=== PATIENT | female | born 1960 | race Caucasian/White ===

== ENCOUNTER 2024-06-26 23:53 | Emergency (ER) | payer MEDICARE, OTHER ==
[~2024-06-26] VITALS: Ht 149.9 cm; Wt 88.0 kg
[2024-06-27 00:06] VITALS: BP 141/81; PULSE 69; RESP 18; TEMP 98.1; O2SAT 96
[2024-06-27] MEDS ORDERED: ACETAMINOPHEN WITH CODEINE 300/30MG TABLET PO ONE (02:30)
[2024-06-27] MEDS ORDERED: ACET-2708 MT (02:58)
[2024-06-27] MEDS ORDERED: ACETAMINOPHEN WITH CODEINE 300/30MG TABLET PO NR (03:30)
== END 2024-06-27 03:55 | disposition home or self-care (01) ==
LOC: ER 23:53
DX: S80.11XA Contusion of right lower leg, initial encounter (principal); J44.89 Other specified chronic obstructive pulmonary disease; I10 Essential (primary) hypertension; I25.2 Old myocardial infarction; Z88.2 Allergy status to sulfonamides; W19.XXXA Unspecified fall, initial encounter; Y93.89 Activity, other specified; Y92.89 Other specified places as the place of occurrence of the external cause; Y99.8 Other external cause status
CPT/HCPCS: 29515; 73590; 73610; 73630; 93971; 99284